=== PATIENT | female | born 1985 | race African-American/Black ===

== ENCOUNTER 2016-11-01 19:57 | Emergency (ER) | payer SELFPAY ==
[~2016-11-01] VITALS: Ht 165.1 cm; Wt 83.0 kg
[2016-11-01] MEDS ORDERED: ACETAMINOPHEN 500MG TABLET PO ONE (20:45)
[2016-11-01 21:35] VITALS: BP 115/59
== END 2016-11-01 21:36 | disposition home or self-care (01) ==
LOC: ER 21:05
DX: O99.331 Smoking (tobacco) complicating pregnancy, first trimester (principal); O26.891 Other specified pregnancy related conditions, first trimester; O99.321 Drug use complicating pregnancy, first trimester; F12.90 Cannabis use, unspecified, uncomplicated; K04.7 Periapical abscess without sinus; J06.9 Acute upper respiratory infection, unspecified; J45.909 Unspecified asthma, uncomplicated; Z3A.01 Less than 8 weeks gestation of pregnancy
CPT/HCPCS: 81025; 99283; Z7610

== ENCOUNTER 2016-11-18 23:53 | Day surgery (SDC) | payer MEDICAID ==
[~2016-11-18] VITALS: Ht 175.3 cm; Wt 68.0 kg
[2016-11-19] MEDS ORDERED: SODIUM CHLORIDE 0.9% 1,000 ML IV ONE ×2 (00:05→06:23)
[2016-11-19] MEDS ORDERED: KETOROLAC 30MG/ML VIAL IV ONE ×2 (00:15→03:00)
[2016-11-19] MEDS ORDERED: ONDANSETRON HCL 4MG/2ML VIAL IV ONE (00:15)
[2016-11-19] MEDS ORDERED: MORPHINE SULFATE 4 MG/ML CPJ (NOT FOR IM USE) IV ONE ×3 (00:15→04:45)
[2016-11-19 00:25] LABS: BASOPHILS % 0.7 % (0.0-2.0); EOSINOPHILS % 3.5 % (0.0-5.0); HEMATOCRIT. 32.2 % (36.0-48.0); HEMOGLOBIN. 10.6 g/dL (12.0-16.0); LYMPHOCYTES % 36.7 % (20.0-50.0); MEAN CORPUSCULAR HEMOGLOBIN 29.3 pg (28.0-32.0); MEAN CORPUSCULAR VOLUME 88.9 fL (81.0-99.0); MEAN PLATELET VOLUME 8.1 fl (7.4-10.4); MONOCYTES % 9.2 % (2.0-8.0); NEUTROPHILS % 49.9 % (40.0-76.0); PLATELET 212 x1000/uL (130-400); RED BLOOD CELL COUNT 3.63 mill/uL (4.2-5.4); RED CELL DISTRIBUTION WIDTH 13.9 % (11.6-14.6)
[2016-11-19 00:30] LABS: CHLORIDE 108 mEq/L (98-107); INDEX HEMOLYSI 1 (1-3); INDEX ICTERIC 1 (1-4); INDEX LIPEMIC 1 (1-3)
[2016-11-19 00:31] LABS: PROTHROMBIN TIME 10.6 sec
[2016-11-19 00:46] LABS: ANION GAP 11; CARBON DIOXIDE 25 mEq/L (21-32); UREA NITROGEN BLOOD 12 mg/dL (7-21); eGFR > 60 mL/min (>60)
[2016-11-19 00:54] LABS: B-HCG QUANTITATIVE 1770 mIU/mL (<3)
[2016-11-19] MEDS ORDERED: MISOPROSTOL 200MCG TABLET PO ONE (02:30)
[2016-11-19 05:38] LABS: CLARITY URINE CLEAR (CLEAR); COLOR URINE YELLOW (YELLOW); GLUCOSE URINE NEGATIVE (NEGATIVE); KETONES URINE NEGATIVE (NEGATIVE); LEUKOCYTE ESTERASE URINE TRACE (NEGATIVE); NITRITE URINE NEGATIVE (NEGATIVE); OCCULT BLOOD URINE 3+ (NEGATIVE); PH URINE 6.5 (4.5-8.0); PROTEIN URINE NEGATIVE (NEGATIVE); SPECIFIC GRAVITY URINE 1.013 (1.005-1.030); UROBILINOGEN URINE 0.2 E.U./dL (0.2-1.0)
[2016-11-19] MEDS ORDERED: HYDROMORPHONE HCL/PF 2MG/ML CPJ IV NR ×2 (06:30→12:31)
[2016-11-19] MEDS ORDERED: METRONIDAZOLE 500 MG PREMIX 100 ML IV ONE ×2 (06:30→10:46)
[2016-11-19] MEDS ORDERED: MEROPENEM 500 MG in SODIUM CHLORIDE 0.9% 50 ML IV SCH (06:30)
[2016-11-19 06:37] LABS: SQUAMOUS EPITHELIAL CELL URINE FEW /lpf (RARE/1+)
[2016-11-19 06:39] LABS: BACTERIA URINE NONE SEEN; WBC URINE 0-2 /hpf (0-2)
[2016-11-19] MEDS ORDERED: MIDAZOLAM HCL 2 MG/2 ML VIAL ONE (10:13)
[2016-11-19] MEDS ORDERED: FENTANYL CITRATE/PF 50MCG/ML 2ML VIAL ONE (10:13)
[2016-11-19] MEDS ORDERED: PROPOFOL 200MG/20ML VIAL IV ONE (10:13)
[2016-11-19] MEDS ORDERED: LIDOCAINE HCL 1% 20ML VIAL (Pyxis) INJ ONE (10:13)
[2016-11-19] MEDS ORDERED: FENTANYL CITRATE/PF 50MCG/ML 2ML VIAL IV PRN (10:30)
[2016-11-19] MEDS ORDERED: HYDROMORPHONE HCL/PF 2MG/ML CPJ IV PRN (10:30)
[2016-11-19] MEDS ORDERED: METOCLOPRAMIDE HCL 10MG/2ML VIAL ONE (11:06)
[2016-11-19] MEDS ORDERED: ONDANSETRON HCL 4MG/2ML VIAL ONE (11:06)
[2016-11-19] MEDS ORDERED: METHYLERGONOVINE MALEATE 0.2 MG/ML ONE (11:07)
[2016-11-19] MEDS ORDERED: HYDROMORPHONE HCL/PF 2MG/ML (OR) ONE (11:11)
[2016-11-19] MEDS ORDERED: METHYLERGONOVINE MALEATE 0.2 MG/ML IM NR (11:15)
[2016-11-19] MEDS ORDERED: ONDANSETRON HCL 4MG/2ML VIAL IV PRN (11:15)
[2016-11-19] MEDS ORDERED: ACETAMINOPHEN 325MG TABLET PO PRN (11:15)
[2016-11-19 12:45] VITALS: BP 111/67
[2016-11-19] MEDS ORDERED: SODIUM CHLORIDE 0.9% 10ML VIAL ONE (13:59)
[2016-11-19] MEDS ORDERED: IOHEXOL-300 100 ML BOTTLE ONE (13:59)
[2016-11-19] MEDS ORDERED: SODIUM CHLORIDE 0.9% INJ 3ML FLUSH IVF SCH (14:00)
== END 2016-11-19 | disposition home or self-care (01) ==
LOC: ER 23:59 → OR 11-19 12:50
PROVIDERS: ATTEND Specialist
DX: O02.89 Other abnormal products of conception (principal); O08.89 Other complications following an ectopic and molar pregnancy; J45.909 Unspecified asthma, uncomplicated; F12.10 Cannabis abuse, uncomplicated; Z87.891 Personal history of nicotine dependence; Z88.0 Allergy status to penicillin; Z98.890 Other specified postprocedural states; Z3A.01 Less than 8 weeks gestation of pregnancy; F17.290 Nicotine dependence, other tobacco product, uncomplicated
CPT/HCPCS: 36415; 59812; 74177; 76801; 76817; 80048; 81001; 84702; 85025; 85610; 86850; 86900; 86901; 88305; 96365; 96367; 96375; 96376; 99285; A4216; J1170; J1885; J2185; J2210; J2250; J2270; J2405; J2765; J3010; J3490; J7030; Q9967; J2704

== ENCOUNTER 2016-11-22 16:22 | Emergency (ER) | payer MEDICAID ==
[~2016-11-22] VITALS: Ht 165.1 cm; Wt 84.0 kg
[~2016-11-22 16:22] MED LIST: IOHEXOL-350 100 ML BOTTLE ONE; SODIUM CHLORIDE 0.9% 10ML VIAL ONE
[2016-11-22] MEDS ORDERED: SODIUM CHLORIDE 0.9% 1,000 ML IV ONE (16:56)
[2016-11-22] MEDS ORDERED: IPRATROPIUM BROMIDE (0.02%) 0.5MG/2.5ML NEB HHN STA (16:56)
[2016-11-22] MEDS ORDERED: ALBUTEROL (0.083%) 2.5MG/3ML NEB HHN STA ×2 (16:56→21:02)
[2016-11-22] MEDS ORDERED: MORPHINE SULFATE 4 MG/ML CPJ (NOT FOR IM USE) IV ONE ×2 (17:00→20:15)
[2016-11-22] MEDS ORDERED: ONDANSETRON HCL 4MG/2ML VIAL IV ONE (17:00)
[2016-11-22 17:37] LABS: CLARITY URINE CLEAR (CLEAR); COLOR URINE YELLOW (YELLOW); GLUCOSE URINE NEGATIVE (NEGATIVE); KETONES URINE NEGATIVE (NEGATIVE); LEUKOCYTE ESTERASE URINE 2+ (NEGATIVE); NITRITE URINE NEGATIVE (NEGATIVE); OCCULT BLOOD URINE 3+ (NEGATIVE); PH URINE 6.5 (4.5-8.0); PROTEIN URINE NEGATIVE (NEGATIVE); SPECIFIC GRAVITY URINE 1.022 (1.005-1.030)
[2016-11-22 17:46] LABS: BASOPHILS % 0.7 % (0.0-2.0); EOSINOPHILS % 3.7 % (0.0-5.0); HEMATOCRIT. 29.9 % (36.0-48.0); HEMOGLOBIN. 9.9 g/dL (12.0-16.0); LYMPHOCYTES % 33.7 % (20.0-50.0); MEAN CORPUSCULAR HEMOGLOBIN 29.6 pg (28.0-32.0); MEAN CORPUSCULAR HGB CONC 33.1 g/dL (31.0-37.0); MEAN CORPUSCULAR VOLUME 89.5 fL (81.0-99.0); MEAN PLATELET VOLUME 8.2 fl (7.4-10.4); NEUTROPHILS % 51.9 % (40.0-76.0); PLATELET 229 x1000/uL (130-400); RED BLOOD CELL COUNT 3.34 mill/uL (4.2-5.4); RED CELL DISTRIBUTION WIDTH 13.9 % (11.6-14.6); WHITE BLOOD COUNT 9.3 x1000/uL (4.5-11.0)
[2016-11-22 17:47] LABS: CHLORIDE 108 mEq/L (98-107); INDEX HEMOLYSI 1 (1-3); INDEX ICTERIC 1 (1-4); INDEX LIPEMIC 1 (1-3)
[2016-11-22 17:49] LABS: RBC URINE TNTC /hpf (0-2); WBC URINE 15-25 /hpf (0-2)
[2016-11-22 17:50] LABS: BACTERIA URINE TRACE; SQUAMOUS EPITHELIAL CELL URINE RARE /lpf (RARE/1+)
[2016-11-22 17:51] LABS: ALBUMIN 2.9 g/dL (3.4-5.0); ANION GAP 9; CALCIUM 8.1 mg/dL (8.5-10.1); CARBON DIOXIDE 28 mEq/L (21-32); D-DIMER 0.56 mg/L FEU (<0.50); PROTHROMBIN TIME 10.8 sec; UREA NITROGEN BLOOD 9 mg/dL (7-21)
[2016-11-22 17:56] LABS: ALANINE AMINOTRANSFERASE 31 IU/L (13-61); eGFR > 60 mL/min (>60)
[2016-11-22 17:58] LABS: B-HCG QUANTITATIVE 317 mIU/mL (<3)
[2016-11-22] MEDS ORDERED: CEFTRIAXONE 1 G PREMIX 50 ML IV ONE (18:00)
[2016-11-22] MEDS ORDERED: PREDNISONE 20MG TABLET PO STA (21:02)
[2016-11-22 23:07] VITALS: BP 119/68
== END 2016-11-22 23:09 | disposition home or self-care (01) ==
LOC: ER 17:27
DX: N39.0 Urinary tract infection, site not specified (principal); J45.901 Unspecified asthma with (acute) exacerbation; D25.9 Leiomyoma of uterus, unspecified; D64.9 Anemia, unspecified; Z98.890 Other specified postprocedural states; Z87.891 Personal history of nicotine dependence; Z88.0 Allergy status to penicillin
CPT/HCPCS: 36415; 71275; 76801; 76817; 80053; 81001; 83605; 84702; 85025; 85379; 85610; 86850; 86900; 86901; 87040; 87077; 87086; 93005; 94640; 96361; 96365; 96375; 96376; 99285; A4216; J0696; J2270; J2405; J7030; J7512; J7611; Q9967; Z7610

== ENCOUNTER 2017-07-29 10:03 | Emergency (ER) | payer MEDICAID, OTHER ==
[~2017-07-29] VITALS: Ht 165.1 cm; Wt 82.0 kg
[2017-07-29 10:22] VITALS: BP 143/91
[2017-07-29] MEDS ORDERED: SODIUM CHLORIDE 0.9% 1,000 ML IV ONE (14:15)
[2017-07-29] MEDS ORDERED: FAMOTIDINE 20MG/2ML VIAL IV STA (14:25)
[2017-07-29] MEDS ORDERED: MORPHINE SULFATE 4 MG/ML CPJ (NOT FOR IM USE) IV STA (14:25)
[2017-07-29] MEDS ORDERED: ONDANSETRON HCL 4MG/2ML VIAL IV STA (14:25)
[2017-07-29 15:05] LABS: BASOPHILS % 0.5 % (0.0-2.0); EOSINOPHILS % 1.9 % (0.0-5.0); HEMOGLOBIN. 12.4 g/dL (12.0-16.0); LYMPHOCYTES % 22.8 % (20.0-50.0); MEAN CORPUSCULAR HEMOGLOBIN 29.2 pg (28.0-32.0); MEAN CORPUSCULAR VOLUME 89.4 fL (81.0-99.0); MEAN PLATELET VOLUME 8.4 fl (7.4-10.4); NEUTROPHILS % 65.8 % (40.0-76.0); PLATELET 212 x1000/uL (130-400); RED BLOOD CELL COUNT 4.25 mill/uL (4.2-5.4); RED CELL DISTRIBUTION WIDTH 13.2 % (11.6-14.6)
[2017-07-29 15:11] LABS: INR 1.1; PROTHROMBIN TIME 11.5 sec (9.4-11.6)
[2017-07-29 15:13] LABS: CLARITY URINE CLEAR (CLEAR); COLOR URINE YELLOW (YELLOW); KETONES URINE NEGATIVE (NEGATIVE); LEUKOCYTE ESTERASE URINE NEGATIVE (NEGATIVE); NITRITE URINE NEGATIVE (NEGATIVE); OCCULT BLOOD URINE NEGATIVE (NEGATIVE); PROTEIN URINE NEGATIVE (NEGATIVE); SPECIFIC GRAVITY URINE 1.011 (1.005-1.030); UROBILINOGEN URINE 0.2 E.U./dL (0.2-1.0)
[2017-07-29 15:18] LABS: CARBON DIOXIDE 24 mEq/L (21-32); CHLORIDE 107 mEq/L (98-107)
[2017-07-29 15:24] LABS: HCG SCREEN NEGATIVE
== END 2017-07-29 15:32 | disposition left against medical advice (07) ==
LOC: ER 11:11
DX: R11.2 Nausea with vomiting, unspecified (principal); R10.13 Epigastric pain; J45.909 Unspecified asthma, uncomplicated; F17.200 Nicotine dependence, unspecified, uncomplicated; F12.10 Cannabis abuse, uncomplicated; Z88.0 Allergy status to penicillin
CPT/HCPCS: 36415; 80053; 81003; 83690; 84703; 85025; 85610; 99284; J7030

== ENCOUNTER 2018-03-07 09:48 | Emergency (ER) | payer MEDICAID, OTHER ==
[~2018-03-07] VITALS: Ht 165.1 cm; Wt 80.0 kg
[2018-03-07] MEDS ORDERED: ONDANSETRON HCL 4MG/2ML VIAL IV STA (10:22)
[2018-03-07] MEDS ORDERED: SODIUM CHLORIDE 0.9% 1,000 ML IV ONE (10:22)
[2018-03-07] MEDS ORDERED: MAGNESIUM/ALUMINUM HYDROXIDE/SIMETHICONE 30ML UDC PO STA (10:22)
[2018-03-07] MEDS ORDERED: FAMOTIDINE 20MG/2ML VIAL IV STA (10:22)
[2018-03-07 10:33] LABS: CLARITY URINE CLEAR (CLEAR); COLOR URINE YELLOW (YELLOW); KETONES URINE NEGATIVE (NEGATIVE); LEUKOCYTE ESTERASE URINE NEGATIVE (NEGATIVE); NITRITE URINE NEGATIVE (NEGATIVE); OCCULT BLOOD URINE NEGATIVE (NEGATIVE); PH URINE 7.5 (4.5-8.0); PROTEIN URINE NEGATIVE (NEGATIVE); SPECIFIC GRAVITY URINE 1.022 (1.005-1.030)
[2018-03-07 10:43] LABS: BASOPHILS % 0.8 % (0.0-2.0); EOSINOPHILS % 4.4 % (0.0-5.0); HEMOGLOBIN. 13.5 g/dL (12.0-16.0); LYMPHOCYTES % 24.7 % (20.0-50.0); MEAN CORPUSCULAR HEMOGLOBIN 29.3 pg (28.0-32.0); MEAN CORPUSCULAR VOLUME 89.3 fL (81.0-99.0); MEAN PLATELET VOLUME 8.3 fl (7.4-10.4); MONOCYTES % 10.6 % (2.0-8.0); NEUTROPHILS % 59.5 % (40.0-76.0); PLATELET 250 x1000/uL (130-400); RED BLOOD CELL COUNT 4.59 mill/uL (4.2-5.4); RED CELL DISTRIBUTION WIDTH 13.4 % (11.6-14.6)
[2018-03-07] MEDS ORDERED: MORPHINE SULFATE 4 MG/ML CPJ (NOT FOR IM USE) IV NR (10:45)
[2018-03-07 10:51] LABS: CHLORIDE 107 mEq/L (98-107); INR 1.1; PROTHROMBIN TIME 11.3 sec (9.4-11.6)
[2018-03-07] MEDS ORDERED: IOHEXOL-300 100 ML BOTTLE ONE (12:11)
[2018-03-07 13:08] VITALS: BP 106/62
== END 2018-03-07 13:51 | disposition home or self-care (01) ==
LOC: ER 11:29
DX: N83.209 Unspecified ovarian cyst, unspecified side (principal); F12.10 Cannabis abuse, uncomplicated; J45.909 Unspecified asthma, uncomplicated; F17.210 Nicotine dependence, cigarettes, uncomplicated; R10.9 Unspecified abdominal pain; R11.0 Nausea; Z88.0 Allergy status to penicillin
CPT/HCPCS: 36415; 74177; 76700; 80053; 81003; 81025; 83690; 85025; 85610; 96374; 96375; 99285; J2270; J2405; J3490; J7030; Q9967

== ENCOUNTER 2018-07-12 04:59 | Emergency (ER) | payer SELFPAY ==
[~2018-07-12] VITALS: Ht 165.1 cm; Wt 82.0 kg
[2018-07-12] MEDS ORDERED: SODIUM CHLORIDE 0.9% 1,000 ML IV ONE (06:19)
[2018-07-12] MEDS ORDERED: MORPHINE SULFATE 10 MG/ML CPJ IV ONE (06:30)
[2018-07-12] MEDS ORDERED: MORPHINE SULFATE 4 MG/ML CPJ (NOT FOR IM USE) IV ONE (06:30)
[2018-07-12] MEDS ORDERED: KETOROLAC 30MG/ML VIAL IV ONE (06:30)
[2018-07-12] MEDS ORDERED: ONDANSETRON HCL 4MG/2ML INJ IV ONE (06:30)
[2018-07-12 06:47] LABS: CLARITY URINE CLOUDY (CLEAR); COLOR URINE YELLOW (YELLOW); KETONES URINE TRACE (NEGATIVE); LEUKOCYTE ESTERASE URINE 1+ (NEGATIVE); NITRITE URINE NEGATIVE (NEGATIVE); OCCULT BLOOD URINE 3+ (NEGATIVE); PROTEIN URINE NEGATIVE (NEGATIVE); SPECIFIC GRAVITY URINE 1.022 (1.005-1.030); UROBILINOGEN URINE 0.2 E.U./dL (0.2-1.0)
[2018-07-12 06:51] LABS: BASOPHILS % 0.8 % (0.0-2.0); EOSINOPHILS % 1.6 % (0.0-5.0); HEMOGLOBIN. 12.8 g/dL (12.0-16.0); LYMPHOCYTES % 14.3 % (20.0-50.0); MEAN CORPUSCULAR HEMOGLOBIN 29.7 pg (28.0-32.0); MEAN CORPUSCULAR VOLUME 90.7 fL (81.0-99.0); MEAN PLATELET VOLUME 8.6 fl (7.4-10.4); MONOCYTES % 7.2 % (2.0-8.0); NEUTROPHILS % 76.1 % (40.0-76.0); PLATELET 232 x1000/uL (130-400); RED CELL DISTRIBUTION WIDTH 13.6 % (11.6-14.6)
[2018-07-12 06:58] LABS: INR 1.1; PROTHROMBIN TIME 10.7 sec (9.1-11.1)
[2018-07-12 07:01] LABS: CHLORIDE 108 mEq/L (98-107)
[2018-07-12 07:07] LABS: HCG SCREEN NEGATIVE
[2018-07-12] MEDS ORDERED: DIAZEPAM 5 MG TABLET PO ONE (08:45)
[2018-07-12 11:00] VITALS: BP 113/58
== END 2018-07-12 11:27 | disposition home or self-care (01) ==
LOC: ER 04:59
DX: N39.0 Urinary tract infection, site not specified (principal); M54.5 Low back pain; D21.9 Benign neoplasm of connective and other soft tissue, unspecified; N93.9 Abnormal uterine and vaginal bleeding, unspecified; J45.909 Unspecified asthma, uncomplicated; N80.9 Endometriosis, unspecified; F17.200 Nicotine dependence, unspecified, uncomplicated; Z88.0 Allergy status to penicillin; Z98.890 Other specified postprocedural states
CPT/HCPCS: 36415; 76830; 76856; 80053; 81003; 81025; 84703; 85025; 85610; 86850; 86900; 86901; 96361; 96374; 96375; 99284; J1885; J2270; J2405; J7030

== ENCOUNTER 2019-08-22 05:16 | Emergency (ER) | payer MEDICAID ==
[~2019-08-22] VITALS: Ht 165.1 cm; Wt 81.4 kg
[2019-08-22] MEDS ORDERED: ONDANSETRON HCL 4MG TABLET PO ONE (06:15)
[2019-08-22] MEDS ORDERED: ACETAMINOPHEN 325MG TABLET PO PRN (06:15)
[2019-08-22 06:58] LABS: HEMATOCRIT. 34.3 % (36.0-48.0); HEMOGLOBIN. 11.4 g/dL (12.0-16.0); MEAN CORPUSCULAR HEMOGLOBIN 29.9 pg (28.0-32.0); MEAN CORPUSCULAR VOLUME 89.7 fL (81.0-99.0); MEAN PLATELET VOLUME 8.2 fl (7.4-10.4); PLATELET 213 x1000/uL (130-400); RED BLOOD CELL COUNT 3.82 mill/uL (4.2-5.4); RED CELL DISTRIBUTION WIDTH 13.6 % (11.6-14.6)
[2019-08-22 07:02] LABS: CHLORIDE 106 mEq/L (98-107)
[2019-08-22 07:05] LABS: HCG SCREEN POSITIVE
[2019-08-22 07:27] LABS: B-HCG QUANTITATIVE 86357 mIU/mL (<3)
[2019-08-22 07:56] LABS: PLATELET ESTIMATE NORMAL
[2019-08-22 08:16] VITALS: BP 108/63
[2019-08-22 08:16] LABS: CLARITY URINE CLEAR (CLEAR); COLOR URINE YELLOW (YELLOW); KETONES URINE 2+ (NEGATIVE); LEUKOCYTE ESTERASE URINE NEGATIVE (NEGATIVE); NITRITE URINE NEGATIVE (NEGATIVE); OCCULT BLOOD URINE NEGATIVE (NEGATIVE); PH URINE 6.5 (4.5-8.0); PROTEIN URINE NEGATIVE (NEGATIVE); SPECIFIC GRAVITY URINE 1.023 (1.005-1.030); UROBILINOGEN URINE 0.2 E.U./dL (0.2-1.0)
== END 2019-08-22 08:47 | disposition home or self-care (01) ==
LOC: ER 05:16
DX: O26.891 Other specified pregnancy related conditions, first trimester (principal); O98.511 Other viral diseases complicating pregnancy, first trimester; B34.9 Viral infection, unspecified; R10.9 Unspecified abdominal pain; J45.909 Unspecified asthma, uncomplicated; Z3A.01 Less than 8 weeks gestation of pregnancy; Z88.0 Allergy status to penicillin; Z98.890 Other specified postprocedural states
CPT/HCPCS: 36415; 76801; 76817; 80053; 81003; 81025; 84702; 84703; 85025; 86850; 86900; 86901; 87804; 99284; Q0162

== ENCOUNTER 2019-12-18 12:35 | Observation (INO) | payer MEDICAID ==
[~2019-12-18] VITALS: Ht 165.1 cm; Wt 97.1 kg
[2019-12-18] MEDS ORDERED: ASCO100T12 MT (13:07)
[2019-12-18] MEDS ORDERED: FERR325T6 PO (13:07)
[2019-12-18] MEDS ORDERED: PNV1TABL76 MT (13:07)
== END 2019-12-18 15:50 | disposition home or self-care (01) ==
LOC: 8 EST LDRP 12:35
PROVIDERS: ATTEND Obstetrics & Gynecology
DX: O36.8120 Decreased fetal movements, second trimester, not applicable or unspecified (principal); Z3A.24 24 weeks gestation of pregnancy
CPT/HCPCS: 76805; 99281; G0378